=== PATIENT | female | born 1950 | race Caucasian/White ===

== ENCOUNTER 2020-05-15 10:30 | Day surgery (SDC) | payer OTHER, SELFPAY ==
[~2020-05-15] VITALS: Ht 157.5 cm; Wt 63.5 kg
[~2020-05-15 10:30] MED LIST: ASPI-1822 PO; CIPR500T4 PO; ENAL-197 PO; GLYB2.5T1 PO; METF1000 PO; NITR100C7 PO; PANT40EC PO; PHEN-329 PO
[2020-05-15] MEDS ORDERED: MIDAZOLAM 5 MG/5 ML VIAL ONE (13:03)
[2020-05-15] MEDS ORDERED: fentaNYL citrate 0.05 MG/ML VIAL ONE (13:03)
[2020-05-15] MEDS ORDERED: diphenhydrAMINE 50 MG/ML VIAL ONE (13:03)
[2020-05-15] MEDS ORDERED: LIDOCAINE 2% 100 MG/5 ML UJET TP ONE (13:04)
[2020-05-15] MEDS ORDERED: MIDAZOLAM 2 MG/2 ML VIAL IVP ONE (14:15)
[2020-05-15] MEDS ORDERED: fentaNYL citrate 0.05 MG/ML VIAL IVP ONE (14:15)
== END 2020-05-15 14:15 | disposition home or self-care (01) ==
LOC: MDS 10:30 → MMU 12:03 → MDS 14:15
PROVIDERS: ATTEND Internal Medicine Gastroenterology
DX: Z12.11 Encounter for screening for malignant neoplasm of colon (principal); K57.30 Diverticulosis of large intestine without perforation or abscess without bleeding; I10 Essential (primary) hypertension; E11.9 Type 2 diabetes mellitus without complications; Z79.84 Long term (current) use of oral hypoglycemic drugs; Z79.899 Other long term (current) drug therapy; Z90.710 Acquired absence of both cervix and uterus; Z90.49 Acquired absence of other specified parts of digestive tract; Z20.828 Contact with and (suspected) exposure to other viral communicable diseases
CPT/HCPCS: 45378; J2250; J3010; U0003; J1200